=== PATIENT | male | born 1930 | race Caucasian/White ===

== ENCOUNTER 2016-04-20 12:13 | Outpatient (CLI) | payer MEDICARE ==
[2016-04-20 12:46] LABS: Bilirubin Negative (Negative); Blood, Urine Moderate (Negative); Glucose, Urine (Dipstick) Negative (Negative); Leukocyte Moderate (Negative); Nitrite Negative (Negative); Protein, Urine (Dipstick) Negative (Neg-Trace); Urobilinogen 0.2 mg/dL (0.2-1.0)
[2016-04-20 13:41] LABS: Bacteria/HPF 1+ HPF (None Seen); Clarity Hazy (Clear); WBC/HPF 21-50 HPF (0-3)
== END 2016-04-20 12:14 | disposition home or self-care (01) ==
LOC: MADLABBHPM 12:13
PROVIDERS: ATTEND Family Medicine
DX: N39.0 Urinary tract infection, site not specified (principal)
CPT/HCPCS: 36415; 81001; 87086

== ENCOUNTER 2016-10-07 11:18 | Outpatient (CLI) | payer MEDICARE ==
[2016-10-07 13:40] LABS: Hemoglobin 9.8 g/dL (14.0-18.0); Mean Corpuscular HGB CONC 33.6 g/dL (32.0-36.0); Mean Corpuscular Hemoglobin 31.8 pg (27.0-31.0); Mean Corpuscular Volume 94.7 fl (80.0-94.0); Mean Platelet Volume 6.6 fL (7.4-10.4); Platelet Count 152 thou/uL (130-400); RBC Distribution Width 15.9 % (11.5-14.5); Red Blood Cell (RBC) Count 3.07 mill/uL (4.70-6.10); White Blood Cell (WBC) Count 2.8 thou/uL (4.8-10.8)
[2016-10-07 14:28] LABS: Lymphocytes 42 % (21-51); MDiff Complete? YES; Manual Diff?? YES; Monocytes 15 % (0-10); Neutrophil 43 % (42-75); PLT Morphology Comment Appears Adequate; RBC Morphology Normal
== END 2016-10-07 11:19 | disposition home or self-care (01) ==
LOC: MADLAB 11:18
PROVIDERS: ATTEND Internal Medicine
DX: C64.2 Malignant neoplasm of left kidney, except renal pelvis (principal)
CPT/HCPCS: 36415; 85025